=== PATIENT | male | born 1990 | race African-American/Black ===

== ENCOUNTER 2019-08-10 09:55 | Emergency (ER) | payer MEDICAID ==
[~2019-08-10] VITALS: Ht 167.6 cm; Wt 65.9 kg
[2019-08-10] MEDS ORDERED: ONDANSETRON HCL 4 MG TABLET PO ONE (11:15)
[2019-08-10] MEDS ORDERED: ACETAMINOPHEN 500 MG TABLET PO ONE (11:15)
[2019-08-10] MEDS ORDERED: MECLIZINE HCL 25 MG TABLET PO ONE (11:15)
[2019-08-10 13:35] VITALS: BP 154/70
== END 2019-08-10 13:37 | disposition home or self-care (01) ==
LOC: EMS 09:57
DX: S09.90XA Unspecified injury of head, initial encounter (principal); R42 Dizziness and giddiness; Y04.0XXA Assault by unarmed brawl or fight, initial encounter; Y93.89 Activity, other specified; Y92.89 Other specified places as the place of occurrence of the external cause; Y99.8 Other external cause status
CPT/HCPCS: 70450; 99284; Q0162

== ENCOUNTER 2020-02-16 18:04 | Emergency (ER) | payer SELFPAY ==
[~2020-02-16] VITALS: Ht 167.6 cm; Wt 59.1 kg
[2020-02-16 18:06] VITALS: BP 125/77
== END 2020-02-16 18:35 | disposition left against medical advice (07) ==
LOC: EMS 18:04
DX: R10.9 Unspecified abdominal pain (principal); Z53.21 Procedure and treatment not carried out due to patient leaving prior to being seen by health care provider

== ENCOUNTER 2022-04-26 10:31 | Emergency (ER) | payer MEDICAID ==
[~2022-04-26] VITALS: Ht 172.7 cm; Wt 75.0 kg
[2022-04-26] MEDS ORDERED: PERTUSS(ACELL),DIPH,TET VAC/PF 0.5 ML SYRINGE IM. ONE (10:45)
[2022-04-26] MEDS ORDERED: IBUPROFEN 600 MG TABLET PO ONE (10:45)
[2022-04-26 11:44] VITALS: BP 126/72
== END 2022-04-26 11:53 | disposition home or self-care (01) ==
LOC: EMS 10:31
DX: S41.032A Puncture wound without foreign body of left shoulder, initial encounter (principal); S43.102A Unspecified dislocation of left acromioclavicular joint, initial encounter; W26.0XXA Contact with knife, initial encounter; Y93.89 Activity, other specified; Y92.89 Other specified places as the place of occurrence of the external cause; Y99.8 Other external cause status
CPT/HCPCS: 71045; 90471; 90715; 99284